=== PATIENT | male | born 1960 | race Caucasian/White ===

== ENCOUNTER 2021-05-30 23:29 | Emergency (ER) | payer MEDICAID ==
[~2021-05-30] VITALS: Ht 182.9 cm; Wt 83.9 kg
[2021-05-30 23:36] VITALS: BP 171/113
--- NOTE | 2021-05-30 23:38 | NUR ---
PT HELD IN AMBULANCE
--- NOTE | 2021-05-31 00:25 | NUR ---
PT OFFLOADED TO LOBBY BY [facility].
--- NOTE | 2021-05-31 00:34 | NUR ---
PT REFUSED TO WAIT IN LOBBY AND LEFT FACILITY IN PERSONAL VEHCILE WITH SIGNIFICANT OTHER. PATIENT LEFT WITHOUT BEING SEEN BY DR. SOUZA. NO FURTHER CARE PROVIDED FOR PATIENT.
== END 2021-05-31 00:34 | disposition left against medical advice (07) ==
LOC: MED 23:29
DX: T40.411A Poisoning by fentanyl or fentanyl analogs, accidental (unintentional), initial encounter (principal); Z53.21 Procedure and treatment not carried out due to patient leaving prior to being seen by health care provider; Y92.89 Other specified places as the place of occurrence of the external cause